=== PATIENT | male | born 1990 | race African-American/Black ===

== ENCOUNTER 2016-11-24 16:38 | Emergency (ER) | payer SELFPAY ==
[2016-11-24 16:48] VITALS: BP 122/91; PULSE 86; RESP 20; TEMP 97.9; O2SAT 96
--- NOTE | 2016-11-24 16:50 | EDPHY ---
H & P Stated Complaint: ABCESS L LOWER TOOTH/ON ABX NOT BETTER HPI/ROS: HPI CHIEF COMPLAINT: Left lower jaw line pain and swelling HISTORY OF PRESENT ILLNESS: This patient is a 26-year-old male no significant medical history does not take any daily medications, states he has been having dental pain for the past week left lower jaw line posterior molar, no swelling. The pain is not been this bad. He states the past 24 hours he knows worsening pain and swelling. No fever. He states he was seen in emergency room in [place] a week ago given Pen-VK. He has been taking this. This was for pain on the right side of his jaw line. He now presents emergency room with worsening left-sided lower jaw line pain and swelling. No fever. No trouble swallowing. Past Medical History: No significant medical history Past Surgical History: No significant surgical history Social History: Denies daily use of drugs alcohol tobacco products Family History: Noncontributory ROS REVIEW OF SYSTEMS: A comprehensive 10 point review of systems is otherwise negative aside from elements mentioned in the history of present illness. Exam Constitutional appears well nontoxic, triage nursing summary reviewed, vital signs reviewed, awake/alert. Eyes normal conjunctivae and sclera, EOMI, PERRLA. HENT oropharynx: Left lower jaw line is swollen, mild, poor dentition of left lower jaw line specifically posterior molar, no gumline abscess, no evidence of Rafael's, no evidence of ANUG. moist mucus membranes, no epistaxis, neck supple/ no meningismus, no raccoon eyes. Respiratory clear to auscultation bilaterally, normal breath sounds, no respiratory distress, no wheezing. Cardiovascular rate normal, regular rhythm, no murmur, no edema, distal pulses normal. Gastrointestinal soft, non-tender, no rebound, no guarding, normal bowel sounds, no distension, no pulsatile mass. Genitourinary no CVA tenderness. Musculoskeletal no midline vertebral tenderness, full range of motion, no calf swelling, no tenderness of extremities, no meningismus, good pulses, neurovascularly intact. Skin pink, warm, & dry, no rash, skin atraumatic. Neurologic awake, alert and oriented x 3, AAOx3, moves all 4 extremities equally, motor intact, sensory intact, CN II-XII intact, normal cerebellar, normal vision, normal speech. Psychiatric normal mood/affect. Heme/Lymph/Immune no lymphadenopathy. Differential Diagnosis: Includes but is not limited to in a particular order, apical abscess, pulpitis, dental infection, jaw line infection, abscess Medical Decision Making: Plan for this patient I did offer him blood work and CT maxillofacial with IV contrast to further delineate this left lower jaw line swelling however patient declined. He would like to try a trial of clindamycin and pain medicine. He does understand there is risk of this getting more swollen and infected and without visualization with CT scan I cannot identify if he has a significant gumline abscess he is okay with this plan. Plan for this patient clindamycin p.o. here, [place] p.o. here. And discharge given he does not want blood work or CT scan. Declined IV antibiotics. Understands return him emergency room next 24-48 hours if he has worsening swelling, pain or sees no improvement. Re-evaluation: Source: Patient - Personal History Current Tetanus/Diphtheria Vaccine: Yes - Medical/Surgical History Hx Asthma: No Hx Chronic Respiratory Disease: No Hx Diabetes: No Hx Cardiac Disease: No Hx Renal Disease: No Hx Cirrhosis: No Hx Alcoholism: No Hx HIV/AIDS: No Hx Splenectomy or Spleen Trauma: No Other PMH: DENIES - Social History Smoking Status: Current every day smoker Constitutional: Initial Vital Signs Temperature (C) 36.6 C 11/24/16 16:45 Heart Rate 86 11/24/16 16:45 Respiratory Rate 20 11/24/16 16:45 Blood Pressure 122/91 H 11/24/16 16:45 O2 Sat (%) 96 11/24/16 16:45 O2 Delivery Mode Room Air Allergies/Adverse Reactions: No Known Allergies Allergy (Unverified 11/24/16 16:45) Home Medications: Medication Instructions Recorded Clindamycin HCl [Clindamycin] 300 mg PO TID #30 cap 11/24/16 Hydrocodone/APAP 5/325 [[place] 1 - 2 tab PO Q4H PRN #10 tab 11/24/16 5/325] Pen Vk 50mg/ml (*) 11/24/16 Departure - Departure Disposition: Home, Routine, Self-Care Clinical Impression: Dental infection Condition: Good Instructions: Toothache (ED), Dental Abscess (ED) Additional Instructions: 1.Return emergency room if you have worsening symptoms includes pain, swelling, fever. 2. Take your antibiotic as prescribed take it with yogurt and on a full stomach. 3. stop your other antibiotic Referrals: NONE *PRIMARY CARE P,. [Primary Care Provider] - As per Instructions [facility] [Outside] - As per Instructions [facility] [Outside] - As per Instructions [facility] [Outside] - As per Instructions [facility] [Outside] - As per Instructions Dental [facility] [Outside] - As per Instructions Prescriptions: Clindamycin HCl [Clindamycin] 300 mg PO TID #30 cap Hydrocodone/APAP 5/325 [[place] 5/325] 1 - 2 tab PO Q4H PRN #10 tab PRN Reason: Pain, Moderate
[2016-11-24] MEDS ORDERED: CLINDAMYCIN 150 MG CAP PO ONE (17:14)
[2016-11-24] MEDS ORDERED: HYDROCODONE/APAP 5/325 TAB PO ONE (17:14)
[2016-11-24] MEDS ORDERED: HYDROCOD/APAP 5/325 PREPACK#6 BTL TAKEHOME ONE (17:14)
== END 2016-11-24 17:25 | disposition home or self-care (01) ==
DX: K04.7 Periapical abscess without sinus (principal); F17.200 Nicotine dependence, unspecified, uncomplicated